=== PATIENT | male | born 1975 | race Caucasian/White ===

== ENCOUNTER 2021-05-11 19:22 | Inpatient (IN) | payer OTHER ==
[~2021-05-11] VITALS: Ht 170.2 cm; Wt 83.0 kg
[2021-05-11 19:44] VITALS: BP 141/89
--- NOTE | 2021-05-11 19:47 | NUR ---
TO LOBBY A/W BED AMBULATORY
[2021-05-11 20:29] LABS: APPEARANCE,URINE CLEAR (CLEAR); BILIRUBIN,URINE NEGATIVE (NEGATIVE); BLOOD, URINE 2+ (NEGATIVE); COLOR,URINE YELLOW (YELLOW); LEUKOCYTE ESTERASE ,URINE NEGATIVE (NEGATIVE); NITRITE, URINE NEGATIVE (NEGATIVE); PH,URINE 7.5 (5.0-9.0); UGLUCOSE NEGATIVE (NEGATIVE)
--- NOTE | 2021-05-11 20:36 | NUR ---
PT AMBULATED TO BED 1
[2021-05-11 20:48] LABS: WBC,URINE NONE SEEN /HPF (0-5)
--- NOTE | 2021-05-11 21:00 | NUR ---
46 Y/O MALE PATIENT PRESENTS TO ED WITH LEFT LOWER QUADRANT PAIN . PT STATES " I WENT TO URGENT CARE TODAY AND THEY TOLD ME TO GO HERE" . DENIES N/V/D; SKIN IS PINK/WARM/DRY; AAOX4 WITH EVEN AND STEADY GAIT; LUNGS CLEAR BL; HR EVEN AND REGULAR; PT DENIES ANY FEVER, CP, SOB, OR COUGH AT THIS TIME; PATIENT STATES PAIN OF 8/10 AT THIS TIME; VSS; PATIENT POSITIONED FOR COMFORT; HOB ELEVATED; BEDRAILS UP X2; BED DOWN. ER MD MADE AWARE OF PT STATUS. DORA [facility]: ULCERATIVE COLITIS
[2021-05-11 21:41] LABS: BASOPHILS # (AUTO) 0.1 K/uL (0.00-0.22); BASOPHILS % (AUTO) 0.7 % (0.0-2.0); EOSINOPHILS # (AUTO) 0.3 K/uL (0-0.4); EOSINOPHILS % (AUTO) 2.2 % (0.0-4.0); HEMOGLOBIN 16.4 g/dL (12.0-18.0); LYMPHOCYTES # (AUTO) 3.5 K/uL (2.0-11.5); LYMPHOCYTES % (AUTO) 23.5 % (20.5-51.1); MEAN CORPUSCULAR HEMOGLOBIN 32 pg (27-31); MEAN CORPUSCULAR HGB CONC 34 g/dL (33-37); MEAN CORPUSCULAR VOLUME 93.9 fL (80-94); MONOCYTES # (AUTO) 1.4 K/uL (0.8-1.0); MONOCYTES % (AUTO) 9.5 % (1.7-9.3); NEUTROPHILS # (AUTO) 9.5 K/uL (1.8-7.7); NEUTROPHILS % (AUTO) 64.1 % (42.2-75.2); PLATELET COUNT (AUTO) 252 K/uL (140-450); RED BLOOD CELL COUNT(AUTO) 5.11 MIL/uL (4.20-6.10); RED CELL DISTRIBUTION WIDTH 13.4 % (11.6-13.7); WHITE BLOOD COUNT (AUTO) 14.8 K/uL (4.8-10.8)
[2021-05-11 21:53] LABS: ALBUMIN 4.4 g/dL (3.4-5.0); ANION GAP 15.4 (8-16); CARBON DIOXIDE 27.5 mmol/L (21-32); CREATININE 0.8 mg/dL (0.6-1.3); POTASSIUM 3.9 mmol/L (3.5-5.1); TOTAL BILIRUBIN 0.4 mg/dL (0.0-1.0)
[2021-05-11] MEDS ORDERED: NACL 0.9% 1,000 ML IV SCH (21:55)
[2021-05-11] MEDS ORDERED: MORPHINE SULFATE 4 MG/ML SYR IVP ONE (21:55)
[2021-05-11] MEDS ORDERED: ONDANSETRON 4 MG/2 ML VIAL IVP ONE (21:55)
[2021-05-11] MEDS ORDERED: cefTRIAXone 1,000 MG VIAL ONE (21:59)
--- NOTE | 2021-05-11 22:05 | NUR ---
PT IS TAKEN TO CT SCAN VIA WC
--- NOTE | 2021-05-11 22:12 | NUR ---
PT RETURN FROM CT
[2021-05-12] MEDS ORDERED: PIPERACILLIN/TAZOBACTAM 3.375 GM in DEXTROSE 5% 50 ML IV ONE (00:25)
[2021-05-12] MEDS ORDERED: NACL 0.9% 1,000 ML IV ONE ×2 (00:30)
[2021-05-12] MEDS ORDERED: MORPHINE SULFATE 2 MG/ML SYR IVP ONE (00:30)
[2021-05-12] MEDS ORDERED: PIPERACILLIN/TAZOBACTAM 3.375 GM VIAL IV ONE (00:37)
[2021-05-12] MEDS ORDERED: ACETAMINOPHEN 325 MG TAB PO PRN ×2 (01:30)
[2021-05-12] MEDS ORDERED: DEXT 5% / NACL 0.45% 1,000 ML IV SCH (01:30)
[2021-05-12] MEDS ORDERED: HYDROcodone/APAP 5/325 MG 1 TAB TAB PO PRN ×2 (01:30)
[2021-05-12] MEDS ORDERED: ONDANSETRON 4 MG/2 ML VIAL IVP PRN ×2 (01:30)
[2021-05-12] MEDS ORDERED: MORPHINE SULFATE 4 MG/ML SYR IVP PRN ×2 (01:30)
[2021-05-12] MEDS ORDERED: PIPERACILLIN/TAZOBACTAM 2.25 GM VIAL IV ONE (01:48)
--- NOTE | 2021-05-12 02:00 | NUR ---
Patient appears to be resting comfortably in bed. Vital Signs within normal limits. Respirations even and unlabored.
[2021-05-12] MEDS: DEXT 5% / NACL 0.45% 1,000 ML IV SCH ×2 (02:45→14:57)
[2021-05-12] MEDS ORDERED: PIPERACILLIN/TAZOBACTAM 2.25 GM in DEXTROSE 5% 50 ML IV SCH (05:00)
--- NOTE | 2021-05-12 05:00 | NUR ---
pt is resting comfortably in bed, vss. all needs met at this time
[2021-05-12] MEDS: PIPERACILLIN/TAZOBACTAM 2.25 GM in DEXTROSE 5% 50 ML IV SCH ×3 (05:20→20:05)
--- NOTE | 2021-05-12 07:05 | NUR ---
Received report from [facility]. Transfer of care at this time.
--- NOTE | 2021-05-12 07:15 | NUR ---
recieved report from [facility]. Transfer of care recieved
--- NOTE | 2021-05-12 07:44 | NUR ---
Pt resting HOB lowered for comfort, pt self repositioned. VSS, will continue to monitor. Pt states pain at 3/10 manageable at this time. No RX requested.
--- NOTE | 2021-05-12 07:59 | NUR ---
Gave report to [facility]. ETA 10 minutes.
--- NOTE | 2021-05-12 08:02 | NUR ---
Patient will be admitted to care of DR ADAMS. Admited to [facility]. Will go to room 104B. Belongings list completed. Report to [facility].
--- NOTE | 2021-05-12 08:30 | NUR ---
RECEIVED REPORT FROM ER NURSE FOR CONTINUITY OF CARE. CC OF ABD PAIN, ADMITTING DX DIVERTICULITIS. AOX4, NO SOB, AMBULATORY, B/B CONTINENT. WITH C/O PAIN 4/10, TOLERABLE PER PT. SKIN INTACT WITH RAC 22G INTACT AND RUNNING IVF. UNIVERSAL FALLS PRECAUTIONS IN PLACE.
[2021-05-12] MEDS: ENOXAPARIN 40 MG/0.4 ML SYR SUBQ SCH (08:50)
--- NOTE | 2021-05-12 10:00 | NUR ---
PT RESTING IN BED. NO APPARENT DISTRESS
[2021-05-12 12:53] VITALS: BP 126/85
--- NOTE | 2021-05-12 13:00 | NUR ---
DUE IV ZOSYN GIVEN
--- NOTE | 2021-05-12 15:04 | NUR ---
PT RESTING IN BED. NO C/O PAIN AT THIS TIME, NO SOB
[2021-05-12 16:00] VITALS: BP 115/77
--- NOTE | 2021-05-12 16:02 | NUR ---
PATIENT HAS BEEN SCREENED AND CATEGORIZED LOW NUTRITION RISK. PATIENT WILL BE SEEN WITHIN 7 DAYS OF ADMISSION. 05/18/[address]
--- NOTE | 2021-05-12 17:53 | NUR ---
PT IN BED. FAMILY AT BEDSIDE. NO C/O PAIN, NO SOB
--- NOTE | 2021-05-12 19:25 | NUR ---
RECEIVED BEDSIDE REPORT FROM DAY RN. PT IS AAOX4. RESPIRATIONS ARE EQUAL AND UNLABORED ON ROOM AIR. LUNG SOUNDS ARE CLEAR. SKIN IS INTACT. COLOR IS NGA FOR ETHNICITY. C/C LLQ PAIN PT REPORTS PAIN IMPROVED. DX DIVERTICULITIS. DENIES DIARRHEA N/V AT THIS TIME. FAMILY IS AT BEDSIDE. POC DISCUSSED WITH. CALL LIGHT IS WITHIN REACH. WILL CONTINUE TO MONITOR.
[2021-05-12 20:00] VITALS: BP 115/76
--- NOTE | 2021-05-12 20:05 | NUR ---
PT WAS DISCONNECTED PT AMBULATED TO BATHROOM WITH STEADY GAIT. IV ABX NOW INFUSING PER ORDERS. MED EDUCATION GIVEN. ALL NEEDS MET. CALL LIGHT IS WITHIN REACH.
--- NOTE | 2021-05-12 22:25 | NUR ---
DISCONNECTED IV PT AMBULATED TO BATHROOM WITH STEADY GAIT. PT BACK IN BED ALL NEEDS MET. WILL CONTINUE TO MONITOR.
--- NOTE | 2021-05-13 | NUR ---
ROUNDS MADE. PT RESTING IN BED USING CELL PHONE. CALL LIGHT IS WITHIN REACH.
--- NOTE | 2021-05-13 02:04 | NUR ---
ROUNDS MADE. PT APPEARS TO BE ASLEEP. CHEST RISE AND FALL NOTED.
[2021-05-13 04:00] VITALS: BP 118/82
--- NOTE | 2021-05-13 04:00 | NUR ---
VITAL SIGNS ARE WITHIN NORMAL LIMITS. ALL SAFETY MEASURES ARE IN PLACE.
[2021-05-13] MEDS: PIPERACILLIN/TAZOBACTAM 2.25 GM in DEXTROSE 5% 50 ML IV SCH ×2 (04:08→13:12)
[2021-05-13 06:12] LABS: BASOPHILS % (AUTO) 0.5 % (0.0-2.0); EOSINOPHILS # (AUTO) 0.4 K/uL (0-0.4); EOSINOPHILS % (AUTO) 3.9 % (0.0-4.0); HEMATOCRIT 43.7 % (36-52); HEMOGLOBIN 15.2 g/dL (12.0-18.0); LYMPHOCYTES # (AUTO) 3.3 K/uL (2.0-11.5); LYMPHOCYTES % (AUTO) 34.4 % (20.5-51.1); MEAN CORPUSCULAR HEMOGLOBIN 33 pg (27-31); MEAN CORPUSCULAR HGB CONC 35 g/dL (33-37); MEAN CORPUSCULAR VOLUME 93.8 fL (80-94); MONOCYTES # (AUTO) 0.9 K/uL (0.8-1.0); MONOCYTES % (AUTO) 9.2 % (1.7-9.3); NEUTROPHILS # (AUTO) 5.1 K/uL (1.8-7.7); PLATELET COUNT (AUTO) 266 K/uL (140-450); RED BLOOD CELL COUNT(AUTO) 4.66 MIL/uL (4.20-6.10); RED CELL DISTRIBUTION WIDTH 13.1 % (11.6-13.7); WHITE BLOOD COUNT (AUTO) 9.7 K/uL (4.8-10.8)
[2021-05-13 06:25] LABS: ALBUMIN 3.6 g/dL (3.4-5.0); ANION GAP 10.5 (8-16); CARBON DIOXIDE 29.3 mmol/L (21-32); CREATININE 0.8 mg/dL (0.6-1.3); POTASSIUM 3.8 mmol/L (3.5-5.1); TOTAL BILIRUBIN 0.5 mg/dL (0.0-1.0)
--- NOTE | 2021-05-13 07:27 | NUR ---
WILL ENDORSE TO DAY RN. PT IS STABLE.
--- NOTE | 2021-05-13 07:28 | NUR ---
RECEIVED REPORT FROM PEDIATRIC RN RN FOR CONTINUITY OF CARE. PATIENT RESTING IN BED, RESPIRATORY EVEN UNLABORED IN RA. SKIN WARM AND DRY, SKIN INTACT. IV TO THE RIGHT AC 18G INFUSING IVF D5 1/2 NS@ 75ML/HR. NO ACUTE DISTRESS NOTED AT THIS TIME. SAFETY MEASURES IN PLACE, CALL LIGHT WITHIN REACH. WILL CONTINUE TO MONITOR.
[2021-05-13 08:00] VITALS: BP 122/81
[2021-05-13] MEDS: ENOXAPARIN 40 MG/0.4 ML SYR SUBQ SCH (09:00)
[2021-05-13] MEDS: DEXT 5% / NACL 0.45% 1,000 ML IV SCH (09:38)
--- NOTE | 2021-05-13 14:55 | NUR ---
DC PLANNING: SPOKE WITH PATIENT AT BEDSIDE. PATIENT CURRENTLY LIVES WITH IS AND FOUR OF FIVE CHILDREN IN A SECOND STORY APARTMENT. STATES HE HAS BEEN UNEMPLOYED X 5 YEARS SECONDARY TO "A BREAKDOWN", DIAGNOSIS OF MANIC DEPRESSION AND NON-COMPLIANCE WITH MEDICATIONS. IS ALSO UNEMPLOYED. STATES HE AND FAMILY RECEIVE WELFARE AND FOOD STAMPS, AND THAT HE WILL RESTART PROCESS FOR DISABILITY. STATES HE AND SPOUSE ARE IN PROCESS OF AND THAT HE WILL EVENTUALLY LIVE WITH HIS MOTHER. H/O OF MARIJUANA USE TO SELF MEDICATE AFTER DISCONTINUING PSYCH MEDS, STATES HE NO LONGER USES. HAS A PCP THAT HE STATES HE WILL FOLLOW UP WITH FOR A POST HOSPITAL VISIT AND POSSIBLE RESUMPTION OF COUNSELING AND MENTAL HEALTH OVERSIGHT. PATIENT CELL PHONE IS [phone]. CM WILL CONTINUE TO FOLLOW FOR NEEDS.
[2021-05-13 16:00] VITALS: BP 130/83
--- NOTE | 2021-05-13 19:45 | NUR ---
ENDORSED PATIENT TO BEAM DEPARTMENT SUPERVISOR RN FOR CONTINUITY OF CARE. PATIENT IN STABLE CONDITION. INFORMED DR. SMITH THAT PATIENT TOLERATED THE SOFT DIET WELL.
[2021-05-13] MEDS ORDERED: AMOX-1000 PO (20:12)
[2021-05-13] MEDS ORDERED: ONDA4TAB PO (20:13)
--- NOTE | 2021-05-13 20:26 | NUR ---
RECEIVED REPORT AT 1950 PT AAOX4, SKIN W/D TO TOUCH. ATE 100% OF DINNER, TOLERATED WELL. VOICED NO C/O N/V, OR MALAISE. CALLED FOR D/C ORDERS.
--- NOTE | 2021-05-13 20:55 | NUR ---
PT D/C HOME. IV D/C'D INTACT, ARM BAND REMOVED, D/C INSTRUCTIONS EXPLAINED / COPY GIVEN. TAKEN TO CAR VIA W/C BY NURSE. ABLE TO AMBULATE TO CAR W/ STEADY GAIT, SPOUSE AND OTHER FAMILY W/ PT.
== END 2021-05-13 20:50 | disposition home or self-care (01) | DRG 244 ==
LOC: MED 19:22 → MTU 05-12 01:28
PROVIDERS: ADMIT Hospitalist; ATTEND Hospitalist
DX: K57.32 Diverticulitis of large intestine without perforation or abscess without bleeding (principal); R65.11 Systemic inflammatory response syndrome (SIRS) of non-infectious origin with acute organ dysfunction; F17.200 Nicotine dependence, unspecified, uncomplicated; I10 Essential (primary) hypertension; Z91.013 Allergy to seafood
CPT/HCPCS: 36415; 80053; 81001; 83605; 83690; 85025; 87040; 87081; 96361; 96365; 96375; 96376; 99285; J0696; J1650; J2270; J2405; J2543; J7060